=== PATIENT | male | born 1930 | race Caucasian/White ===

== ENCOUNTER 2016-10-20 10:08 | Emergency (ER) | payer MEDICARE, OTHER ==
[2016-10-20] MEDS ORDERED: Sodium Chloride 0.9% 10 ML Syringe FLUSH PRN (10:37)
--- NOTE | 2016-10-20 12:08 | EDM.PDOC ---
ED HPI GENERAL MEDICAL PROBLEM - General Chief Complaint: Chest Pain Stated Complaint: RIB PAIN WHEN BREATHING Time Seen by Provider: 10/20/16 10:31 Source of Information: Reports: Patient History Limitations: Reports: No Limitations - History of Present Illness INITIAL COMMENTS - FREE TEXT/NARRATIVE: The patient presents with left sided chest pain. It is sharp and it only happens when he takes a deep breath. This started yesterday. He has a slight cough but no fever or chills. He has no shortness of breath. He has no abdominal pain, nausea or vomiting. He has no pain with exertion. 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 He did not hurt his chest. Onset: Gradual Duration: Day(s): (2) Location: Reports: Chest Quality: Reports: Sharp Severity: Mild Improves with: Reports: None Worsens with: Reports: Breathing Associated Symptoms: Reports: Chest Pain. Denies: Cough, Fever/Chills, Nausea/ Vomiting, Shortness of Breath Left Chest Pain Score (Numeric/FACES): 10 - Related Data Allergies Allergy/AdvReac Type Severity Reaction Status Date / Time prednisone Allergy Hives Verified 10/23/14 09:22 oxycodone AdvReac Hallucinati Verified 02/23/15 11:14 ons Tetanus Vaccines and Toxoid AdvReac Respiratory Verified 02/23/15 11:14 [Tetanus Vaccines & Toxoid] Depression Home Meds: Home Meds Atenolol 25 mg PO DAILY 09/24/14 [History] Isosorbide Mononitrate [Imdur] 30 mg PO DAILY 09/24/14 [History] Pantoprazole [ProTONIX] 40 mg PO DAILY 09/24/14 [History] Rosuvastatin [Crestor] 40 mg PO DAILY 09/24/14 [History] Vit A,C & E/Lutein/Minerals [Vision Vitamins] 1 each PO BID 09/24/14 [History] Cyclobenzaprine [Flexeril] 10 mg PO TID PRN #30 tablet 09/29/14 [Rx] Tamsulosin HCl [Flomax] 0.4 mg PO Q24H #30 cap.er.24h 10/09/14 [Rx] Aspirin 325 mg PO DAILY 10/23/14 [History] Levofloxacin [Levaquin] 500 mg PO DAILY #7 tab 10/23/14 [Rx] Azithromycin [IJD: Azithromycin] 250 mg PO DAILY #6 tab 10/20/16 [Rx] Past Medical History Other HEENT History: Wears glasses Cardiovascular History: Reports: Arrhythmia, High Cholesterol Musculoskeletal History: Reports: Osteoarthritis Oncologic (Cancer) History: Reports: Other (See Below) Other Oncologic History: skin Dermatologic History: Reports: Melanoma Other Dermatologic History: left arm - Past Surgical History Cardiovascular Surgical History: Reports: Coronary Artery Stent, Other (See Below) Other Cardiovascular Surgeries/Procedures: open heart surgery 1987 Social & Family History - Family History Family Medical History: Noncontributory - Tobacco Use Smoking Status *Q: Never Smoker Years of Tobacco use: 30 Used Tobacco, but Quit: Yes Month Tobacco Last Used: 30 years ago Second Hand Smoke Exposure: No - Caffeine Use Caffeine Use: Reports: Coffee - Alcohol Use Days Per Week of Alcohol Use: 0 Number of Drinks Per Day: 1 Total Drinks Per Week: 0 - Recreational Drug Use Recreational Drug Use: No ED ROS GENERAL - Review of Systems Review Of Systems: See Below Constitutional: Reports: No Symptoms HEENT: Reports: No Symptoms Respiratory: Reports: No Symptoms Cardiovascular: Reports: Chest Pain Endocrine: Reports: No Symptoms GI/Abdominal: Reports: No Symptoms : Reports: No Symptoms Musculoskeletal: Reports: No Symptoms Skin: Reports: No Symptoms ED EXAM, GENERAL - Physical Exam Exam: See Below Exam Limited By: No Limitations General Appearance: Alert, No Apparent Distress Ears: Normal External Exam Nose: Normal Inspection Head: Atraumatic, Normocephalic Neck: Normal Inspection Respiratory/Chest: No Respiratory Distress, Lungs Clear, Normal Breath Sounds Cardiovascular: Regular Rate, Rhythm, No Edema, No Murmur GI/Abdominal: Soft, Non-Tender, No Organomegaly, No Mass Back Exam: Normal Inspection Extremities: Normal Inspection EKG INTERPRETATION EKG Date: 10/20/16 Time: 10:30 Rhythm: NSR Rate (beats/min): 66 [place]: normal P-wave: present QRS: normal ST-T: other (flattened T waves in the inferior leads and lateral leads) EKG Interpretation Comments: PVCs Course - Vital Signs Last Recorded V/S: Last Vital Signs Temp 97.6 F 10/20/16 10:18 Pulse 68 10/20/16 10:18 Resp 21 H 10/20/16 10:18 BP 127/69 10/20/16 10:18 Pulse Ox 95 10/20/16 10:18 - Orders/Labs/Meds Orders: Active Orders 24 hr Category Date Time Status Cardiac Monitoring [RC] . DIRECTED Care 10/20/16 10:37 Active EKG Documentation Completion [RC] STAT Care 10/20/16 10:38 Active Oxygen Therapy [RC] PRN Care 10/20/16 10:37 Active Peripheral IV Care [RC] . DIRECTED Care 10/20/16 10:38 Active Chest 2V [CR] Stat Exams 10/20/16 10:38 Taken TROPONIN I [CHEM] Stat Lab 10/20/16 12:19 Ordered Sodium Chloride 0.9% [Saline Flush] Med 10/20/16 10:37 Active 10 ml FLUSH ASDIRECTED PRN Peripheral IV Insertion Adult [OM.PC] Stat Oth 10/20/16 10:37 Ordered Medication Orders Sodium Chloride (Saline Flush) 10 ml FLUSH ASDIRECTED PRN PRN Reason: Keep Vein Open Last Admin: 10/20/16 10:41 Dose: 10 ml Labs: Laboratory Tests 10/20/16 10/20/16 10/20/16 Range/Units 10:40 10:40 10:40 WBC 6.92 (4.23-9.07) K/mm3 RBC 3.91 L (4.63-6.08) M/mm3 Hgb 12.6 L (13.7-17.5) gm/L Hct 36.9 L (40.1-51.0) % MCV 94.4 H (79.0-92.2) fl MCH 32.2 (25.7-32.2) pg MCHC 34.1 (32.2-35.5) g/dl RDW Std Deviation 41.6 (35.1-43.9) fL Plt Count 134 L (163-337) K/mm3 MPV 11.1 (9.4-12.3) fl Neut % (Auto) 55.1 (34.0-67.9) % Lymph % (Auto) 23.6 (21.8-53.1) % [place] % (Auto) 10.5 (5.3-12.2) % Eos % (Auto) 10.5 H (0.8-7.0) Baso % (Auto) 0.3 (0.1-1.2) % Neut # (Auto) 3.81 (1.78-5.38) K/mm3 Lymph # (Auto) 1.63 (1.32-3.57) K/mm3 [place] # (Auto) 0.73 (0.30-0.82) K/mm3 Eos # (Auto) 0.73 H (0.04-0.54) K/mm3 Baso # (Auto) 0.02 (0.01-0.08) K/mm3 D-Dimer, Quantitative 0.26 (0.19-0.59) mg/L Sodium 140 (136-145) mEq/L Potassium 4.4 (3.5-5.1) mEq/L Chloride 104 (98-107) mEq/L Carbon Dioxide 28 (21-32) mEq/L Anion Gap 12.4 (5-15) BUN 23 H (7-18) mg/dL Creatinine 1.4 H (0.7-1.3) mg/dL Est Cr Clr Drug Dosing 35.96 mL/min Estimated GFR (MDRD) 48 (>60) mL/min BUN/Creatinine Ratio 16.4 (14-18) Glucose 131 H (83-115) mg/dL Calcium 8.6 (8.5-10.1) mg/dL Total Bilirubin 0.4 (0.2-1.0) mg/dL AST 16 (15-37) U/L ALT 28 (16-63) U/L Alkaline Phosphatase 74 (46-116) U/L Troponin I < 0.017 (0.00-0.056) ng/mL Total Protein 6.5 (6.4-8.2) g/dl Albumin 3.6 (3.4-5.0) g/dl Globulin 2.9 gm/dL Albumin/Globulin Ratio 1.2 (1-2) Meds: Medications Generic Name Dose Route Start Last Admin Trade Name Freq PRN Reason Stop Dose Admin Sodium Chloride 10 ml 10/20/16 10:37 10/20/16 10:41 Saline Flush FLUSH 10 ml ASDIRECTED PRN Administration Keep Vein Open - Re-Assessments/Exams Free Text/Narrative Re-Assessment/Exam: 10/20/16 12:07 I ordered an IV saline lock, EKG, CXR, and labs. He took aspirin before arrival. 10/20/16 12:08 His EKG shows a NSR with some PVCs. There are some flattened T-waves in most leads. His CXR shows nothing new. His CBC looks good. His troponin is negative. His creatinine is elevated at 1.4. 10/20/16 12:20 I will get a repeat troponin. This appears to be pleurisy and bronchitis. I will get him on some zithromax. Departure - Departure Time of Disposition: 12:25 Disposition: Home, Self-Care 01 Condition: good Clinical Impression: Bronchitis, Pleurisy Prescriptions: Azithromycin [IJD: Azithromycin] 250 mg PO DAILY #6 tab Referrals: Tanner Bowden Jr, MD [Primary Care Provider] - 1 Week Forms: ED Department Discharge Additional Instructions: Take the zithromax as prescribed. Take motrin or aleve for the pain. Please return if you are worse or if your cough gets worse or if you develop fever or chills or if you have shortness of breath or if your chest pain is constant. - My Orders Last 24 Hours: My Active Orders 10/20/16 10:37 Cardiac Monitoring [RC] . DIRECTED Oxygen Therapy [RC] PRN Sodium Chloride 0.9% [Saline Flush] 10 ml FLUSH ASDIRECTED PRN Peripheral IV Insertion Adult [OM.PC] Stat 10/20/16 10:38 EKG Documentation Completion [RC] STAT Peripheral IV Care [RC] . DIRECTED Chest 2V [CR] Stat 10/20/16 12:19 TROPONIN I [CHEM] Stat - Assessment/Plan Last 24 Hours: My Active Orders 10/20/16 10:37 Cardiac Monitoring [RC] . DIRECTED Oxygen Therapy [RC] PRN Sodium Chloride 0.9% [Saline Flush] 10 ml FLUSH ASDIRECTED PRN Peripheral IV Insertion Adult [OM.PC] Stat 10/20/16 10:38 EKG Documentation Completion [RC] STAT Peripheral IV Care [RC] . DIRECTED Chest 2V [CR] Stat 10/20/16 12:19 TROPONIN I [CHEM] Stat
[2016-10-20 12:53] VITALS: BP 108/67
--- NOTE | 2016-10-20 12:57 | CR ---
Chest: Two views of the chest were obtained. Comparison: Previous chest x-ray of 09/26/10. Heart size is mildly enlarged. Mild tortuosity of the thoracic aorta seen. Pulmonary vessels are felt to be slightly congested. Previous sternotomy is present. Bony structures are within normal limits for the patient's age. Impression: 1. Findings suspicious for mild CHF. Diagnostic code #3
== END 2016-10-20 12:54 | disposition home or self-care (01) ==
LOC: JD.ED 10:08
DX: J40 Bronchitis, not specified as acute or chronic (principal); R09.1 Pleurisy; E78.00 Pure hypercholesterolemia, unspecified; M19.90 Unspecified osteoarthritis, unspecified site; Z85.828 Personal history of other malignant neoplasm of skin; Z95.5 Presence of coronary angioplasty implant and graft; Z98.890 Other specified postprocedural states; Z79.82 Long term (current) use of aspirin; Z79.899 Other long term (current) drug therapy; Z88.5 Allergy status to narcotic agent; Z88.8 Allergy status to other drugs, medicaments and biological substances
CPT/HCPCS: 36415; 71020; 80053; 84484; 85025; 85379; 93005; 99285; J7050; 99284